=== PATIENT | male | born 1960 | race Caucasian/White ===

== ENCOUNTER 2020-07-10 10:10 | Observation (INO) | payer BC, OTHER ==
[2020-07-10] MEDS ORDERED: Acetaminophen 500 MG TAB ONE (11:58)
[2020-07-10] MEDS ORDERED: Fentanyl 100 MCG/2 ML VIAL ONE (11:58)
[2020-07-10 11:59] LABS: #Eosinphils 0.1 thou/uL (0.0-0.7); #Lymphocytes 1.3 thou/uL (1.20-3.40); #Monocytes 0.5 thou/uL (0.11-0.59); %Basophils 0.5 % (0.0-1.0); %Lymphocytes 22.3 % (21.0-51.0); %Monocytes 7.8 % (0.0-10.0); %Neutrophils 67.5 % (42.0-75.0); Hemoglobin 11.7 g/dL (14.0-18.0); Mean Corpuscular HGB CONC 35.4 g/dL (32.0-36.0); Mean Corpuscular Hemoglobin 33.6 pg (27.0-31.0); Mean Platelet Volume 7.5 fL (7.4-10.4); Platelet Count 128 thou/uL (130-400); RBC Distribution Width 11.1 % (11.5-14.5); White Blood Cell (WBC) Count 5.9 thou/uL (4.8-10.8)
[2020-07-10 12:07] LABS: PTT 29.9 sec (22.9-36.1); Prothrombin Time 13.1 sec (12.0-14.7)
[2020-07-10 12:08] LABS: D-Dimer Test 1.05 *mcg/mL (0.27-0.43)
[2020-07-10 12:22] LABS: ALT (SGPT) 23 U/L (8-55); AST (SGOT) 25 U/L (5-34); Alkaline Phosphatase 64 U/L (40-110); Anion Gap 12 mmol/L (10-20); BUN (Urea Nitrogen) 15 mg/dL (8.4-25.7); Bilirubin, Total 0.4 mg/dL (0.2-1.2); Calc. Creatinine Clearance 0 mL/min (70-130); Calcium 8.7 mg/dL (7.8-10.44); Carbon Dioxide 25 mmol/L (22-29); Chloride 105 mmol/L (98-107); Glucose 109 mg/dL (70-105); Potassium 4.3 mmol/L (3.5-5.1); Sodium 138 mmol/L (136-145)
[2020-07-10 12:29] LABS: Troponin I 0.016 ng/mL (< 0.028)
[2020-07-10] MEDS ORDERED: Ondansetron PF 4 MG/2 ML Vial IVP PRN ×2 (14:00→14:03)
[2020-07-10] MEDS ORDERED: Acetaminophen 325 MG TAB PO PRN ×2 (14:00→14:03)
[2020-07-10] MEDS ORDERED: Ondansetron ODT 4 MG TAB SL PRN (14:00)
[2020-07-10] MEDS ORDERED: Bisacodyl 10 MG SUPP PR PRN (14:03)
[2020-07-10] MEDS ORDERED: Senokot S 8.6-50 MG TAB PO PRN (14:03)
[2020-07-10] MEDS ORDERED: Loperamide HCl 2 MG CAP PO PRN (14:03)
[2020-07-10] MEDS ORDERED: Ondansetron ODT 4 MG TAB PO PRN (14:03)
[2020-07-10] MEDS ORDERED: Guaifenesin DM 100-10/5 ML UDCUP PO PRN (14:03)
[2020-07-10] MEDS ORDERED: Calcium Carbonate 500 MG ChewTAB PO PRN (14:03)
[2020-07-10] MEDS ORDERED: Zolpidem Tartrate 5 MG TAB PO PRN (14:03)
[2020-07-10 14:17] VITALS: BMI 28.4
[2020-07-10] MEDS: HYDROcodone/Acetaminophen 5/325 mg Tablet PO PRN ×2 (16:30→19:58)
[2020-07-10 17:09] LABS: Troponin I Less than 0.010 ng/mL (< 0.028)
[2020-07-10 18:23] LABS: SARS-CoV-2 PCR by NAA Not Detected (NotDetected)
[2020-07-10] MEDS: Famotidine 20 MG TAB PO SCH (19:59)
[2020-07-10] MEDS ORDERED: traZODone HCl 50 MG TAB PO SCH (21:00)
[2020-07-10] MEDS ORDERED: Atorvastatin Calcium 20 MG TAB PO SCH (21:00)
[2020-07-10 21:25] LABS: Troponin I 0.012 ng/mL (< 0.028)
[2020-07-11] MEDS: HYDROcodone/Acetaminophen 5/325 mg Tablet PO PRN ×3 (03:47→14:17)
[2020-07-11 04:10] VITALS: TEMP 98.7
[2020-07-11 05:27] LABS: Cardiac Risk 2.6 (Less than 4.5)
[2020-07-11] MEDS ORDERED: Hydrochlorothiazide 25 MG TAB PO SCH (09:00)
[2020-07-11] MEDS ORDERED: Atenolol 50 MG TAB PO SCH (09:00)
[2020-07-11] MEDS: Famotidine 20 MG TAB PO SCH (09:28)
[2020-07-11] MEDS ORDERED: Iopamidol-370 76% 500 ML 1 ML ONE (11:14)
[2020-07-11 15:34] VITALS: BP 148/91
== END 2020-07-11 17:43 | disposition home or self-care (01) ==
LOC: ERS 10:10 → 2SE 11:41
PROVIDERS: ADMIT Internal Medicine; ATTEND Internal Medicine
DX: S06.6X9A Traumatic subarachnoid hemorrhage with loss of consciousness of unspecified duration, initial encounter (principal); S06.2X9A Diffuse traumatic brain injury with loss of consciousness of unspecified duration, initial encounter; R55 Syncope and collapse; I10 Essential (primary) hypertension; E78.5 Hyperlipidemia, unspecified; F41.9 Anxiety disorder, unspecified; F32.9 Major depressive disorder, single episode, unspecified; E78.00 Pure hypercholesterolemia, unspecified; Z79.899 Other long term (current) drug therapy; Z88.8 Allergy status to other drugs, medicaments and biological substances; Z20.822 Contact with and (suspected) exposure to COVID-19; W19.XXXA Unspecified fall, initial encounter
CPT/HCPCS: 36415; 70450; 71275; 80053; 80061; 84484; 85025; 85379; 85610; 85730; 87635; 93005; 93306; 93880; 96374; G0378; J3010; Q9967; U0003; U0005